=== PATIENT | female | born 1970 | race Hispanic/Latino ===

== ENCOUNTER → 2019-03-07 | Outpatient (CLI) | payer OTHER | LOC: MAMMO 10:16 | PROVIDERS: ATTEND Family Medicine | DX: Z12.31 Encounter for screening mammogram for malignant neoplasm of breast (principal) | CPT/HCPCS: 77067 ==

== ENCOUNTER → 2020-09-14 | Outpatient (CLI) | payer OTHER | LOC: MAMMO 15:19 | PROVIDERS: ATTEND Internal Medicine | DX: Z12.31 Encounter for screening mammogram for malignant neoplasm of breast (principal) | CPT/HCPCS: 77067 ==

== ENCOUNTER → 2025-02-26 | Outpatient (RCR) | payer OTHER | LOC: PT 02-12 10:37 | PROVIDERS: ATTEND Orthopaedic Surgery | DX: M72.2 Plantar fascial fibromatosis (principal) ==